=== PATIENT | male | born 1975 | race Caucasian/White ===

== ENCOUNTER 2020-06-18 11:49 | Observation (INO) | payer SELFPAY ==
[~2020-06-18] VITALS: Ht 162.6 cm; Wt 92.5 kg
[2020-06-18] VITALS (18 sets, daily range): BP systolic 106–152; BP diastolic 59–83
[2020-06-18] MEDS ORDERED: NICOTINE 21MG PATCH. TD PRN (12:15)
[2020-06-18] MEDS ORDERED: NITROGLYCERIN SUBLINGUAL 0.4 MG BOTTLE OF 25. SL PRN (12:15)
[2020-06-18] MEDS: fentaNYL PF VIAL 100 MCG/2 ML VIAL IVP PRN ×2 (12:31→18:22)
[2020-06-18] MEDS ORDERED: HEPARIN for IV BOLUS 10,000 UNIT/10 ML VIAL. ONE (12:33)
[2020-06-18] MEDS ORDERED: VERAPAMIL 5 MG/2 ML VIAL. ONE (12:33)
[2020-06-18] MEDS ORDERED: NITROGLYCERIN 200 MCG/2 ML SYRINGE FOR CATH/VASC LAB. ONE (12:33)
[2020-06-18] MEDS ORDERED: fentaNYL PF VIAL 100 MCG/2 ML VIAL ONE (12:33)
[2020-06-18] MEDS ORDERED: MIDAZOLAM HCL/PF 2 MG/2 ML VIAL. ONE (12:33)
[2020-06-18] MEDS ORDERED: IODIXANOL 320 MG/ML 100 ML VIAL. ONE (12:36)
[2020-06-18] MEDS ORDERED: LIDOCAINE 1% PF 2 ML VIAL. ONE (12:36)
[2020-06-18] MEDS ORDERED: HEPARIN for ARTERIAL LINE 1,500 ML ONE (12:37)
[2020-06-18] MEDS ORDERED: MIDAZOLAM HCL/PF 2 MG/2 ML VIAL. IV ONE (12:45)
[2020-06-18] MEDS ORDERED: IODIXANOL 320 MG/ML 100 ML VIAL. IART ONE (12:45)
[2020-06-18] MEDS ORDERED: fentaNYL PF VIAL 100 MCG/2 ML VIAL IV ONE (12:45)
[2020-06-18] MEDS ORDERED: VERAPAMIL 5 MG/2 ML VIAL. IART ONE (12:45)
[2020-06-18] MEDS ORDERED: CONTRAST GIVEN. MC PRN (12:45)
[2020-06-18] MEDS ORDERED: NITROGLYCERIN 200 MCG/2 ML SYRINGE FOR CATH/VASC LAB. IART ONE (12:45)
[2020-06-18] MEDS ORDERED: HEPARIN for IV BOLUS 10,000 UNIT/10 ML VIAL. IART ONE (12:45)
[2020-06-18] MEDS ORDERED: LIDOCAINE 1% PF 2 ML VIAL. INJ ONE (12:45)
[2020-06-18] MEDS ORDERED: ASPI-886 PO (14:55)
--- NOTE | 2020-06-18 15:27 | CARD ---
MR#: [id number] Date of Study: 06/18/2020 Ordering Physician: JEN DOTSON, Referring Physician: JEN DOTSON, Tech: Kenisha Gil APPROVED REPORT Technologist: Kenisha Gil Nurse: Rain Lewis R.N. Procedure(s) performed: fl time: 6.3 mins dose: 56 gycm2 contrast: 94 ml moderate sedation: 28 minutes LHC, Coronary angiography, Left ventriculogram CSHA Clinical Frailty Scale CSHA Clinical Frailty Scale: Managing Well Heart Failure Heart Failure: No PROCEDURE NARRATIVE Clinical information: 44-year-old man who presents to the hospital in the setting of unstable angina with recurrent chest p ain within 1 week in the setting of prior history of hypertension, tobacco abuse and RCA stent. Informed consent: Written informed consent was obtained from the patient after adequate discussion of the risks and irvin efits of the procedure. Procedure details: ACCESS: The right wrist was prepped and draped in usual sterile fashion. Under 1% lidocaine local anesthesia a 6 B[place]udian Terumo sheath was placed in the right radial artery via the Seldinger technique. DIAGNOSTIC ANGIOGRAPHY: Right and left coronary arteries were engaged with a 6 B[place]udian TIG catheter. Diagnostic angiography i n multiple views were obtained. Next, a 6 B[place]udian pigtail catheter was placed in the left ventricle a nd a LVEDP was measured. A pullback was performed after left ventriculography. All catheters were e xchanged over J-tip guidewire. FINDINGS: ======= Aorta: 110/80 LVEDP: 10 mmHg Left ventriculogram: Ejection fraction 55% Normal wall motion without any evidence of aortic or mitral insufficiency. Coronary angiography: LM: Large caliber vessel with normal angiographic appearance LAD: Moderate caliber vessel with mild luminal irregularities. Ramus: Moderate caliber vessel with normal angiographic appearance. LCX: Moderate caliber non-dominant vessel with mild luminal irregularities OM1: Moderate caliber vessel with normal angiographic appearance RCA: Large caliber dominant vessel with patent mid stent. RPDA/RPL: Moderate caliber vessels with mild luminal irregularities. CLOSURE: At case completion the right radial sheath was removed and a Terumo radial band was applied with 11 m L of air. Hemostasis was achieved. COMPLICATIONS: No acute complications noted Conclusion 1. Normal left sided filling pressures. 2. Normal LV systolic function. EF 55% 3. One vessel CAD with patent RCA stent. Signed by : Jen Dotson, Electronically Approved : 06/18/2020 15:26:57
[2020-06-18] MEDS: CARVEDILOL 3.125 MG TABLET. PO SCH (17:49)
[2020-06-18] MEDS ORDERED: ATORVASTATIN CALCIUM 40 MG TABLET. PO SCH (21:00)
[2020-06-19 03:03] VITALS: BP 103/61
[2020-06-19 05:48] LABS: BASO % 0 % (0-3); EOS # 0.2 x10^3/uL (0.0-0.7); EOS % 3 % (0-3); HEMATOCRIT 41.6 % (39.0-53.0); HEMOGLOBIN 14.6 g/dL (13.0-17.5); LYMPH # 2.8 x10^3/uL (1.0-4.8); LYMPH % 33 % (24-48); MEAN CORPUSCULAR HEMOGLOBIN 33 pg (25-35); MEAN CORPUSCULAR HGB CONC 35 g/dL (31-37); MEAN CORPUSCULAR VOLUME 95 fL (79-100); MONO # 0.7 x10^3/uL (0.0-1.1); MONO % 9 % (0-9); NEUT # 4.7 x10^3/uL (1.8-7.7); NEUT % 55 % (31-73); PLATELET COUNT 200 x10^3/uL (140-400); RED CELL DISTRIBUTION WIDTH 12.8 % (11.5-14.5); WHITE BLOOD COUNT 8.4 x10^3/uL (4.0-11.0)
[2020-06-19 05:50] LABS: ALBUMIN 3.2 g/dL (3.4-5.0); CALCIUM 8.9 mg/dL (8.5-10.1); GFR 81.2; POTASSIUM 3.9 mmol/L (3.5-5.1); TOTAL BILIRUBIN 0.3 mg/dL (0.2-1.0); TOTAL PROTEIN 6.5 g/dL (6.4-8.2)
[2020-06-19 07:00] VITALS: BP 122/87
[2020-06-19] MEDS ORDERED: ASPIRIN ENTERIC COATED 81 MG TABLET.DR. PO SCH (08:00)
[2020-06-19] MEDS ORDERED: CARV3.12 PO (08:29)
[2020-06-19] MEDS ORDERED: LISI-338 PO (08:29)
[2020-06-19] MEDS ORDERED: ATOR40TA PO (08:29)
[2020-06-19] MEDS: CARVEDILOL 3.125 MG TABLET. PO SCH (08:41)
[2020-06-19] MEDS ORDERED: LISINOPRIL 5 MG TABLET. PO SCH (09:00)
--- NOTE | 2020-06-19 09:20 | SSS ---
ADMIT DATE: HISTORY OF PRESENT ILLNESS: The patient is a 44-year-old male patient who presented to the Emergency Room of [facility] with complaint of chest pain and numbness in his left arm that has been going on for the last 3 weeks as a pressure on the left side of the chest for 3 weeks, steadily increased with exertion, complained of dyspnea on exertion, has been using nitro twice per week, which improved his pain. His left arm is numb. When the pain increases, he vomits and is diaphoretic. He also complained of left shoulder and neck pain. The day before admission, he took 3 nitroglycerin, but the pain did not improve, so he came to the Emergency Room for further evaluation and treatment. Stated he felt his pain is very similar to what he experienced in 2018 with non-ST segment elevation myocardial infarction requiring PCI and stent deployment to the right coronary artery, also reports periods of passing out 6-7 times in the last 2 weeks, experiences tunnel vision with scars, apparently had positive COVID exposure from work, coworkers tested positive last 06/08/2020, [facility] and he was tested again in [facility] and apparently was negative. The patient was in [place] for work in 03/2018, suffered non-ST segment elevation myocardial infarction, underwent cardiac catheterization, had a PCI and stent deployment to his right coronary artery. The records provided his echocardiogram at that time showed left ventricular ejection fraction of 40-50%. Apparently, the patient did not like the way his medication made him feel, so he did discontinue them after 5-6 months of use, does take a baby aspirin most of the times. PAST MEDICAL HISTORY: Significant for coronary artery disease, congestive heart failure, hypertension, hyperlipidemia as well as gastroesophageal reflux disease. PAST SURGICAL HISTORY: Significant for PCI and stent deployment. FAMILY HISTORY: His brother had a heart attack when he was in his 40s as well as his father. He has very strong family history of diabetes, hypertension and hypercholesterolemia. SOCIAL HISTORY: He is , has children. He smokes a pack a day and uses marijuana. Does drink alcohol only occasionally. REVIEW OF SYSTEMS: As per history of present illness. HOSPITAL COURSE: The patient was obviously evaluated in the Emergency Room of [facility], was admitted for further evaluation and treatment. Initially, his first set of cardiac enzyme was less than 0.017 and his second set was again 0.017. He was seen in consultation by the Cardiology team and decision was made to transfer him to [facility]. He underwent cardiac catheterization and this showed that he underwent right and left coronary arteries that were engaged with 6-Serbian TIG catheter. Diagnostic angiography with multiple views were obtained and then his 6-Serbian pigtail catheter was placed in the left ventricle and left ventricular end end-diastolic pressure was measured and pullback was performed after left ventriculography. All catheters were exchanged over a J-Tip guidewire. The conclusion is that the patient has normal left-sided filling pressure, normal left ventricular systolic function with ejection fraction of 55%. He has 1 vessel coronary artery disease with patent right coronary artery stent. PHYSICAL EXAMINATION: GENERAL: When I saw him this morning, he was resting slightly propped up in bed, in no apparent respiratory distress. There was no pallor, jaundice, cyanosis, or thyromegaly. No jugular venous distention or limb edema. VITAL SIGNS: His heart rate was 73, blood pressure 103/61, temperature was 98, respiratory rate was 16, and oxygen saturation was 93%. HEAD, EYES, EARS, NOSE AND THROAT: Normocephalic, atraumatic. NECK: Supple. CARDIAC: Normal first and second heart sounds. No gallop, rub or murmur. CHEST: Clear to auscultation. No crepitation or rhonchi. ABDOMEN: Distended, soft, nontender. NEUROLOGIC: He was grossly intact. LABORATORY DATA: His lab work showed a white cell count of 8400, hemoglobin 14.6, hematocrit 41.6, MCV 95, and platelet count of 200,000. Serum sodium 140, potassium 3.9, chloride 105, bicarbonate 25, anion gap of 10, BUN 15, creatinine 1, estimated GFR was 81 mL per minute, his glucose 117, calcium was 8.9, magnesium 2. Total bilirubin, AST, ALT, alkaline phosphatase were normal. Total protein 6.5, albumin 3.2. DISPOSITION AND DISCHARGE MEDICATIONS: The patient was discharged home to continue on lisinopril 5 mg once a day, aspirin 81 mg once a day, atorvastatin calcium 40 mg at bedtime, carvedilol 3.125 mg a day and Nicoderm patch 21 mg topically daily. FINAL DISCHARGE DIAGNOSES: Chest pain with normal coronary arteries and patent stent to the right coronary artery. Other problems include obviously coronary artery disease, status post PCI with stent deployment to the right coronary artery disease, hypertension, hyperlipidemia and gastroesophageal reflux disease. The patient was strongly advised to quit smoking given his strong family history of premature coronary artery disease. His coronavirus-2 PCR was not detectable. CHACE CAN MD DR: SONIA/carri JOB#: [id number] / [id number]
[2020-06-19 11:00] VITALS: BP 118/72
[2020-06-19] MEDS ORDERED: LIDO:MAALOX 1:1 20 ML SINGLE DOSE. PO ONE (11:00)
--- NOTE | 2020-06-19 14:28 | NUR ---
Discharge Note: DAMIAN WILKERSON [facility] Discharge instructions and discharge home medications reviewed with Patient and a copy given. All questions have been answered and understanding verbalized. The following instructions and handouts were given: CP Discontinued IV lines Patient discharged to home with self care via private vehicle
== END 2020-06-19 12:43 | disposition home or self-care (01) ==
LOC: INTOOBSV 11:49 → 2 SOUTH 11:49
PROVIDERS: ADMIT Internal Medicine; ATTEND Internal Medicine
DX: R07.89 Other chest pain (principal); I25.10 Atherosclerotic heart disease of native coronary artery without angina pectoris; E78.5 Hyperlipidemia, unspecified; F17.210 Nicotine dependence, cigarettes, uncomplicated; I11.0 Hypertensive heart disease with heart failure; I50.9 Heart failure, unspecified; K21.9 Gastro-esophageal reflux disease without esophagitis; Z95.1 Presence of aortocoronary bypass graft
CPT/HCPCS: 36415; 80053; 83735; 85025; 93458; 96374; 96375; 96376; 99152; 99153; C1769; C1892; G0378; G0379; J1644; J2250; J3010; J3490; Q9967